=== PATIENT | male | born 1995 | race African-American/Black ===

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

== ENCOUNTER 2017-02-10 19:52 | Emergency (ER) | payer OTHER ==
[~2017-02-10] VITALS: Ht 172.7 cm; Wt 63.5 kg
[~2017-02-10 19:52] MED LIST changes: +LOTRIMIN AF12 GM
== END 2017-02-10 21:00 | disposition home or self-care (01) ==
LOC: SED 19:52
DX: B35.6 Tinea cruris (principal); K21.9 Gastro-esophageal reflux disease without esophagitis; F17.200 Nicotine dependence, unspecified, uncomplicated
CPT/HCPCS: 99282